=== PATIENT | male | born 2000 | race Caucasian/White ===

== ENCOUNTER 2025-01-07 00:08 | Emergency (ER) | payer OTHER ==
[~2025-01-07] VITALS: Ht 190.5 cm; Wt 93.0 kg
[2025-01-07 00:19] VITALS: TEMP 36.7; O2SAT 98
[2025-01-07] MEDS ORDERED: EPIN0.3P3 IM (01:09)
[2025-01-07 01:15] VITALS: BP 115/70; PULSE 85; RESP 16; O2SAT 99
== END 2025-01-07 01:16 | disposition home or self-care (01) ==
LOC: ER 00:08
DX: T78.40XA Allergy, unspecified, initial encounter (principal); Z88.6 Allergy status to analgesic agent; X58.XXXA Exposure to other specified factors, initial encounter
CPT/HCPCS: 99282